=== PATIENT | male | born 2000 | race Caucasian/White ===

== ENCOUNTER 2021-08-09 01:42 | Emergency (ER) | payer SELFPAY ==
[~2021-08-09] VITALS: Ht 185.4 cm; Wt 102.6 kg
[2021-08-09 01:42] VITALS: BP 130/80
--- NOTE | 2021-08-09 02:05 | PHYS DOC ---
Past History Past Medical History: Migraines Additional Past Surgical Histo: [place] teeth Smoking: Non-smoker Alcohol Use: Occasionally Drug Use: Marijuana General Adult EDM: Chief Complaint: DIZZY/LIGHT HEADED HPI: HPI: 21-year-old male presents with report of episode of dizziness that occurred between 1700 --1800 this evening. Patient reports he also had episode of tingling in his left arm and face. Patient reports upon returning home from work he had a headache. Patient reports the headache was very consistent with known migraines. Patient did takes medication with interval resolution of his symptoms. Denies any fever or chills. Denies trauma. Denies known sick contacts. Review of Systems: Review of Systems: Constitutional: Denies fever or chills Eyes: Denies redness or eye pain HENT: Denies nasal congestion or sore throat Respiratory: Denies cough or shortness of breath Cardiovascular: Denies chest pain or palpitations GI: Denies abdominal pain, nausea, or vomiting : Denies dysuria or hematuria Musculoskeletal: Denies back pain or neck pain Integument: Denies rash or skin lesions Neurologic: Reports headache, dizziness, generalized weakness, and transient numbness in face and left arm Complete systems were reviewed and found to be within normal limits, except as documented in this note. Allergies: Allergies: Allergies Coded Allergies Type Severity Reaction Last Updated Verified No Known Drug Allergies 08/09/21 No Physical Exam: PE: Constitutional: Well developed, well nourished, no acute distress, non-toxic appearance HENT: Normocephalic, atraumatic Eyes: PERRL, EOMI, conjunctiva normal, no discharge, no nystagmus noted Neck: Normal range of motion, no tenderness, supple Lungs & Thorax: No respiratory distress, equal chest rise and fall Abdomen: Soft, no tenderness Skin: Warm, dry, no erythema, no rash Back: No tenderness, no CVA tenderness Extremities: No tenderness, ROM intact, no edema Neurologic: Alert and oriented X 3, normal motor function, normal sensory function, no focal deficits noted Psychologic: Affect normal, judgment normal EKG: EKG: [] Radiology/Procedures: Radiology/Procedures: [] Heart Score: C/O Chest Pain: N/A Course & Med Decision Making: Course & Med Decision Making Patient presents with report of dizziness, tingling in left face and arm, and generalized weakness was subsequently turned into a "migraine headache ". Patient reports history of migraines. Patient reports taking medication upon returning home from work with interval resolution of symptoms. Patient currently denies any symptoms. Denies trauma. Patient is afebrile. Vital signs stable. NIHSS 0. Symptoms appear consistent with a atypical migraine headache. Patient stable for discharge with outpatient follow-up with PCP. Discussed findings and plan with patient, who acknowledges understanding and agreement. Lee Disclaimer: Lee Disclaimer: This electronic medical record was generated, in whole or in part, using a voice recognition dictation system. Departure Departure: Impression: Primary Impression: Atypical migraine Disposition: HOME / SELF CARE / HOMELESS Condition: STABLE Patient Instructions: Migraine Headache, [id number] Additional Instructions: Increase fluid hydration. Take over the counter Tylenol and/or Ibuprofen for pain or discomfort. NIHSS - ED NIH Stroke Scale: NIH Stroke Scale Response (Comments) Value Level of Consciousness: 0 Alert/Responsive 0 LOC Questions: 0 Answers both correctly 0 LOC Commands: 0 Performs both tasks 0 Best Gaze: 0 Normal 0 Visual: 0 No visual loss 0 Facial Palsy: 0 Normal, symmetrical 0 Motor - Left Arm 0 No drift 0 Motor - Right Arm 0 No drift 0 Motor - Left Leg 0 No drift 0 Motor: Right Leg 0 No drift 0 Limb Ataxia: 0 Absent 0 Sensory: 0 No loss 0 Best Language: 0 Normal 0 Dysathria: 0 Normal 0 Extinction and Inattention: 0 Normal 0 Total 0 PATIÑOCARLOS DO Aug 09, 2021 02:04
== END 2021-08-09 02:07 | disposition home or self-care (01) ==
LOC: ER 01:42
DX: G43.909 Migraine, unspecified, not intractable, without status migrainosus (principal)
CPT/HCPCS: 99282

== ENCOUNTER 2021-10-29 09:57 | Emergency (ER) | payer SELFPAY ==
[~2021-10-29] VITALS: Ht 185.4 cm; Wt 97.7 kg
[2021-10-29] MEDS ORDERED: ONDANSETRON PF 4 MG/2 ML VIAL. IVP ONE (10:15)
[2021-10-29] MEDS ORDERED: IV NORMAL SALINE 1,000ML 1,000 ML IV ONE (10:15)
--- NOTE | 2021-10-29 10:25 | PHYS DOC ---
Past History Past Medical History: Migraines Past Surgical History: No Surgical History Additional Past Surgical Histo: [place] teeth Smoking: Non-smoker Alcohol Use: Occasionally Drug Use: Marijuana General Adult EDM: Chief Complaint: COUGH HPI: HPI: 21-year-old male presents with cough, fever, nausea, vomiting. He has had the symptoms for about 3 days. He has not measured fever but felt feverish. He has had a nonproductive cough. He has had sore throat and diarrhea. The patient is concerned about getting dehydrated so he thought he should come in for evaluation. He is not vaccinated against COVID-19. He did contract COVID-06 July 2021. Review of Systems: Review of Systems: Constitutional: Fever and chills Eyes: Denies change in visual acuity HENT: Nasal congestion and sore throat Respiratory: Cough without significant shortness of breath Cardiovascular: Denies chest pain or edema GI: Denies abdominal pain. Vomiting, diarrhea. : Denies dysuria Musculoskeletal: Denies back pain or joint pain Integument: Denies rash Neurologic: Headache. Denies focal weakness or sensory changes Endocrine: Denies polyuria or polydipsia Lymphatic: Denies swollen glands Psychiatric: Denies depression or anxiety Allergies: Allergies: Allergies Coded Allergies Type Severity Reaction Last Updated Verified No Known Drug Allergies 08/09/21 No Physical Exam: PE: Constitutional: Well developed, well nourished, obese, no acute distress, non- toxic appearance. [] HENT: Normocephalic, atraumatic, bilateral external ears normal, oropharynx moist, no oral exudates, nose normal. [] Eyes: PERRLA, EOMI, conjunctiva normal, no discharge. [] Neck: Normal range of motion, no tenderness, supple, no stridor. [] Cardiovascular: Heart rate regular rhythm, no murmur [] Lungs & Thorax: Bilateral breath sounds clear to auscultation [] Abdomen: Bowel sounds normal, soft, no tenderness, no masses, no pulsatile masses. [] Skin: Warm, dry, no erythema, no rash. [] Back: No tenderness, no CVA tenderness. [] Extremities: No tenderness, no cyanosis, no clubbing, ROM intact, no edema. [] Neurologic: Alert and oriented X 3, normal motor function, normal sensory function, no focal deficits noted. [] Psychologic: Affect normal, judgement normal, mood normal. [] Current Patient Data: Vital Signs: Vital Signs Date Time Temp Pulse Resp B/P (MAP) Pulse Ox O2 Delivery O2 Flow Rate FiO2 10/29/21 10:09 98.8 102 18 130/80 (97) 96 Room Air EKG: EKG: [] Radiology/Procedures: Radiology/Procedures: [] Impressions: Exam performed: One view chest. Indication: Reason: shortness of breath / Spl. Instructions: / History: Date of Service: 10/29/2021 10:27 AM Comparison: None available. Single AP upright portable view chest findings: Cardiomediastinal silhouette is within upper limits limits of normal. No acute infiltrates, effusion or pneumothorax is detected. The bony structures are normal. Impression: No acute cardiopulmonary process is detected. Electronically signed by: Krystina Valentine MD (10/29/2021 11:06 AM) [facility] DICTATED AND SIGNED BY: KRYSTINA VALENTINE MD DATE: 10/29/21 1102 CC: JOSE ALONSO DO; PCP,NO ~MTH0 0 Heart Score: C/O Chest Pain: N/A Risk Factors: Risk Factors: DM, Current or recent (<one month) smoker, HTN, HLP, family history of CAD, obesity. Risk Scores: Score 0 - 3: 2.5% MACE over next 6 weeks - Discharge Home Score 4 - 6: 20.3% MACE over next 6 weeks - Admit for Clinical Observation Score 7 - 10: 72.7% MACE over next 6 weeks - Early Invasive Strategies Course & Med Decision Making: Course & Med Decision Making Pertinent Labs and Imaging studies reviewed. (See chart for details) The patient's labs are significant for an elevated white count. His chest x-ray is negative for acute findings. His rapid influenza is negative. [] Dragon Disclaimer: Dragon Disclaimer: This electronic medical record was generated, in whole or in part, using a voice recognition dictation system. Departure Departure: Impression: Primary Impression: Viral URI with cough Disposition: HOME / SELF CARE / HOMELESS Condition: STABLE Referrals: PCP,NO (PCP) Patient Instructions: Viral Syndrome JOSE ALONSO DO Oct 29, 2021 10:25
[2021-10-29 11:00] LABS: BASO % 0 % (0-3); EOS # 0.1 x10^3/uL (0.0-0.7); EOS % 1 % (0-3); HEMOGLOBIN 16.5 g/dL (13.0-17.5); LYMPH # 1.9 x10^3/uL (1.0-4.8); LYMPH % 13 % (24-48); MEAN CORPUSCULAR HEMOGLOBIN 30 pg (25-35); MEAN CORPUSCULAR HGB CONC 34 g/dL (31-37); MEAN CORPUSCULAR VOLUME 87 fL (79-100); MONO # 2.8 x10^3/uL (0.0-1.1); MONO % 19 % (0-9); NEUT # 10.1 x10^3uL (1.8-7.7); NEUT % 68 % (31-73); PLATELET COUNT 243 x10^3/uL (140-400); RED BLOOD COUNT 5.52 x10^6/uL (4.30-5.70); RED CELL DISTRIBUTION WIDTH 12.4 % (11.5-14.5); WHITE BLOOD COUNT 14.9 x10^3/uL (4.0-11.0)
[2021-10-29 11:06] LABS: CALCIUM 9.3 mg/dL (8.5-10.1); CREATININE 1.1 mg/dL (0.7-1.3); GFR 83.7; POTASSIUM 3.7 mmol/L (3.5-5.1)
--- NOTE | 2021-10-29 11:09 | RAD ---
Exam performed: One view chest. Indication: Reason: shortness of breath / Spl. Instructions: / History: Date of Service: 10/29/2021 10:27 AM Comparison: None available. Single AP upright portable view chest findings: Cardiomediastinal silhouette is within upper limits limits of normal. No acute infiltrates, effusion or pneumothorax is detected. The bony structures are normal. Impression: No acute cardiopulmonary process is detected. Electronically signed by: Krystina Valentine MD (10/29/2021 11:06 AM) [facility]
[2021-10-29 11:11] LABS: ALBUMIN/GLOBULIN RATIO 0.9 (1.0-1.7); TOTAL BILIRUBIN 0.9 mg/dL (0.2-1.0); TOTAL PROTEIN 8.6 g/dL (6.4-8.2)
[2021-10-29 11:16] LABS: INFLUENZA A PATIENT NEGATIVE (NEGATIVE); INFLUENZA B PATIENT NEGATIVE (NEGATIVE)
[2021-10-29] MEDS ORDERED: DEXA4TAB63 PO (11:26)
[2021-10-29] MEDS ORDERED: ONDA4TAB12 PO (11:27)
[2021-10-29] MEDS ORDERED: DEXAMETHASONE SOD PHOS 10 MG/ML VIAL. IVP ONE (11:30)
[2021-10-29 11:32] VITALS: BP 116/71
== END 2021-10-29 11:41 | disposition home or self-care (01) ==
LOC: ER 09:57
DX: J06.9 Acute upper respiratory infection, unspecified (principal); G43.909 Migraine, unspecified, not intractable, without status migrainosus; Z20.822 Contact with and (suspected) exposure to COVID-19
CPT/HCPCS: 71045; 80053; 85025; 87070; 87804; 87880; 96361; 96374; 96375; 99284; C9803; J1100; J2405; J7030; U0003